=== PATIENT | female | born 1970 | race Caucasian/White ===

== ENCOUNTER 2017-10-07 13:50 | Emergency (ER) | payer OTHER | END 2017-10-07 15:34 | disposition home or self-care (01) | LOC: M ED 13:50 | DX: M94.0 Chondrocostal junction syndrome [Tietze] (principal); F17.210 Nicotine dependence, cigarettes, uncomplicated | CPT/HCPCS: 71046 ==

== ENCOUNTER 2020-01-18 15:41 | Inpatient (IN) | payer OTHER, SELFPAY ==
[~2020-01-18] VITALS: Ht 160 cm; Wt 68.5 kg
[~2020-01-18 15:41] MED LIST: ceFAZolin SOD 2 GM in IV 1 EA IV ONE
[2020-01-18] MEDS ORDERED: ACETAMINOPHEN TAB 650MG DOSE (2X325MG) PO ONE (16:15)
[2020-01-18] MEDS ORDERED: NS 1,000 ML IV SCH (17:29)
[2020-01-18] MEDS ORDERED: MORPHINE 4 MG/ML 1ML VIAL/SYRINGE (J2270) IV ONE (17:45)
[2020-01-18] MEDS ORDERED: NORCO, ANEXSIA 5/325MG TABLET (HYDROcodone/ACETAMINOPHEN) PO PRN (18:00)
[2020-01-18] MEDS ORDERED: MORPHINE 2 MG/ML 1ML VIAL (J2270) IV PRN (18:00)
[2020-01-18] MEDS ORDERED: MOM 30ML SUSPENSION UDC PO PRN (18:00)
[2020-01-18] MEDS ORDERED: ACETAMINOPHEN TAB 650MG DOSE (2X325MG) PO PRN (18:00)
[2020-01-18] MEDS ORDERED: BISACODYL 10 MG SUPP PR PRN (18:00)
[2020-01-18] MEDS ORDERED: zolPIDEM TARTRATE 5 MG TAB PO PRN (18:00)
[2020-01-18] MEDS ORDERED: ONDANSETRON 4MG/2ML VIAL IV PRN (18:00)
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
[2020-01-18 18:29] LABS: BASO # 0.1 10^3/uL (0.0-0.2); BASO % 0.3 % (0.0-1.0); EOS # 0.1 10^3/uL (0.0-0.5); EOS % 0.3 % (0.0-3.0); HEMATOCRIT 41.2 % (36.0-47.0); HEMOGLOBIN 13.7 g/dl (12.0-15.5); LYMPH # 1.4 10^3/uL (1.5-5.0); LYMPH % 7.6 % (24.0-44.0); MEAN CORPUSCULAR HGB CONC 33.3 g/dl (32.0-36.5); MEAN CORPUSCULAR VOLUME 93.2 fl (80.0-96.0); MONO # 0.9 10^3/uL (0.0-0.8); MONO % 4.9 % (0.0-5.0); NEUTROPHILS # 15.9 10^3/uL (1.5-8.5); NEUTROPHILS % 86.2 % (36.0-66.0); PLATELET COUNT, AUTOMATED 302 10^3/uL (150-450); RED BLOOD COUNT 4.42 10^6/uL (4.00-5.40); WHITE BLOOD COUNT 18.5 10^3/uL (4.0-10.0)
[2020-01-18 18:39] LABS: INR 1.05; PROTHROMBIN TIME 13.4 SECONDS (11.8-14.0)
[2020-01-18 18:40] LABS: PARTIAL THROMBOPLASTIN TIME 26.8 SECONDS (25.0-38.4)
[2020-01-18 18:53] LABS: BLOOD UREA NITROGEN 7 MG/DL (7-18); CALCIUM LEVEL 8.4 MG/DL (8.5-10.1); CARBON DIOXIDE LEVEL 25 MEQ/L (21-32); CHLORIDE LEVEL 105 MEQ/L (98-107); CREATININE FOR GFR 0.63 MG/DL (0.55-1.30); GLOMERULAR FILTRATION RATE > 60.0 (>58); GLUCOSE, FASTING 101 MG/DL (70-100); POTASSIUM SERUM 3.8 MEQ/L (3.5-5.1); SODIUM LEVEL 137 MEQ/L (136-145)
[2020-01-18 20:12] VITALS: BP 128/64
[2020-01-18] MEDS ORDERED: HEPARIN SOD (PORCINE) 5000UNITS/ML VIAL (J1644 PER 1000UNITS) SC SCH (21:00)
[2020-01-19 05:17] VITALS: BP 117/62
[2020-01-19] MEDS ORDERED: ceFAZolin SOD 2 GM in IV 1 EA IV ONE (06:00)
[2020-01-19] MEDS: NORCO, ANEXSIA 5/325MG TABLET (HYDROcodone/ACETAMINOPHEN) PO PRN ×2 (06:54→15:07)
--- NOTE | 2020-01-19 07:56 | REP ---
Clinical: Trauma. Technique: AP, lateral, bilateral oblique views of the left knee. Findings: There is a shattered, comminuted depressed fracture involving the proximal tibia from the articular surface to the metaphysis. Overlying soft tissue swelling. Impression: Comminuted depressed fracture of the proximal tibia. Electronically Signed by Gavin Cherry MD 01/19/2020 07:47 A
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
[2020-01-19] MEDS: HEPARIN SOD (PORCINE) 5000UNITS/ML VIAL (J1644 PER 1000UNITS) SQ SCH ×2 (08:28→20:38)
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
[2020-01-19 14:21] VITALS: BP 115/63
[2020-01-19 19:34] VITALS: BP 112/54
[2020-01-20] MEDS: NS 1,000 ML IV SCH ×2 (00:37→07:11)
[2020-01-20] MEDS: NORCO, ANEXSIA 5/325MG TABLET (HYDROcodone/ACETAMINOPHEN) PO PRN ×2 (01:31→07:39)
[2020-01-20 05:49] VITALS: BP 108/54
[2020-01-20] MEDS ORDERED: PERC5TAB12 PO (07:16)
[2020-01-20] MEDS: HEPARIN SOD (PORCINE) 5000UNITS/ML VIAL (J1644 PER 1000UNITS) SQ SCH (07:51)
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
== END 2020-01-20 08:00 | disposition short-term general hospital (02) | DRG 342 ==
LOC: M ED 15:41 → EDBD 15:41 → M ED INP 17:51 → ENRESERV 18:01 → M MS5PR 20:12
PROVIDERS: ADMIT Orthopaedic Surgery Sports Medicine; ATTEND Orthopaedic Surgery Sports Medicine
DX: S82.142A Displaced bicondylar fracture of left tibia, initial encounter for closed fracture (principal); F17.210 Nicotine dependence, cigarettes, uncomplicated; W05.2XXA Fall from non-moving motorized mobility scooter, initial encounter; Y92.89 Other specified places as the place of occurrence of the external cause; Y99.8 Other external cause status

== ENCOUNTER 2020-03-02 13:00 | Outpatient (RCR) | payer MEDICAID, OTHER ==
[~2020-03-02 13:00] MED LIST changes: +PERC5TAB12 PO; -ceFAZolin SOD 2 GM in IV 1 EA IV ONE
== END 2020-03-03 ==
LOC: M PT 13:00
PROVIDERS: ATTEND Orthopaedic Surgery Orthopaedic Trauma
DX: Z51.89 Encounter for other specified aftercare (principal); Z47.89 Encounter for other orthopedic aftercare

== ENCOUNTER → 2020-04-03 | Outpatient (RCR) | payer MEDICAID, OTHER | LOC: M PT 03-04 12:51 | PROVIDERS: ATTEND Orthopaedic Surgery Orthopaedic Trauma | DX: S82.142A Displaced bicondylar fracture of left tibia, initial encounter for closed fracture (principal); X58.XXXA Exposure to other specified factors, initial encounter; Y92.9 Unspecified place or not applicable ==

== ENCOUNTER 2020-05-01 14:20 | Outpatient (RCR) | payer OTHER | END 2020-05-04 | LOC: M PT 14:20 | PROVIDERS: ATTEND Orthopaedic Surgery Orthopaedic Trauma | DX: S82.142D Displaced bicondylar fracture of left tibia, subsequent encounter for closed fracture with routine healing (principal); X58.XXXD Exposure to other specified factors, subsequent encounter; Y92.9 Unspecified place or not applicable ==

== ENCOUNTER 2020-05-06 12:52 | Outpatient (RCR) | payer OTHER | END 2020-06-03 | LOC: M PT 12:52 | PROVIDERS: ATTEND Orthopaedic Surgery Orthopaedic Trauma | DX: S82.142D Displaced bicondylar fracture of left tibia, subsequent encounter for closed fracture with routine healing (principal); W18.30XD Fall on same level, unspecified, subsequent encounter; Y92.9 Unspecified place or not applicable ==

== ENCOUNTER 2020-06-29 13:28 | Outpatient (RCR) | payer OTHER | END 2020-07-04 | LOC: M PT 13:28 | PROVIDERS: ATTEND Orthopaedic Surgery Orthopaedic Trauma | DX: S82.142D Displaced bicondylar fracture of left tibia, subsequent encounter for closed fracture with routine healing (principal) ==

== ENCOUNTER 2020-09-01 10:55 | Outpatient (RCR) | payer OTHER | END 2020-09-03 | LOC: M PT 10:55 | PROVIDERS: ATTEND Orthopaedic Surgery Orthopaedic Trauma | DX: S82.142D Displaced bicondylar fracture of left tibia, subsequent encounter for closed fracture with routine healing (principal) ==

== ENCOUNTER 2020-09-14 13:58 | Outpatient (RCR) | payer OTHER | END 2020-10-04 | LOC: M PT 13:58 | PROVIDERS: ATTEND Orthopaedic Surgery Orthopaedic Trauma | DX: S82.142D Displaced bicondylar fracture of left tibia, subsequent encounter for closed fracture with routine healing (principal); X58.XXXD Exposure to other specified factors, subsequent encounter ==

== ENCOUNTER 2021-07-17 18:56 | Emergency (ER) | payer OTHER ==
[~2021-07-17] VITALS: Ht 160 cm; Wt 67.0 kg
[2021-07-17 18:56] VITALS: BP 108/58
--- OUTSIDE RECORDS SUMMARY | 2021-07-17 19:03 | CCD ---
Author Author [facility] Organization [facility] Address Unknown Phone Unavailable Care Team Providers Care Bulk Folder Name Role Phone Jairo Banerjee MD Unavailable Unavailable Jairo Banerjee MD Unavailable Unavailable Jairo Banerjee MD Unavailable Unavailable Jairo Banerjee MD Unavailable Unavailable Jairo Banerjee MD Unavailable Unavailable Jairo Banerjee MD Unavailable Unavailable Jairo Banerjee MD Unavailable Unavailable Jairo Banerjee MD Unavailable Unavailable Jairo Banerjee MD Unavailable Unavailable Jairo Banerjee MD Unavailable Unavailable Jairo Banerjee MD Unavailable Unavailable Jairo Banerjee MD Unavailable Unavailable Jairo Banerjee MD Unavailable Unavailable Jairo Banerjee MD Unavailable Unavailable Jairo Banerjee MD Unavailable Unavailable Jairo Banerjee MD Unavailable Unavailable Jairo Banerjee MD Unavailable Unavailable Jairo Banerjee MD Unavailable Unavailable Jairo Banerjee MD Unavailable Unavailable Jaior Banerjee MD Unavailable Unavailable Jairo Banerjee MD Unavailable Unavailable Jairo Banerjee MD Unavailable Unavailable Jairo Banerjee MD Unavailable Unavailable Jairo Banerjee MD Unavailable Unavailable Jairo Banerjee MD Unavailable Unavailable Jairo Banerjee MD Unavailable Unavailable Jairo Banerjee MD Unavailable Unavailable Jairo Banerjee MD Unavailable Unavailable Jairo Banerjee MD Unavailable Unavailable Jairo Banerjee MD Unavailable Unavailable Jairo Banerjee MD Unavailable Unavailable Jairo Banerjee MD Unavailable Unavailable Jairo Banerjee MD Unavailable Unavailable Jairo Banerjee MD Unavailable Unavailable Jairo Banerjee MD Unavailable Unavailable Jairo Banerjee MD Unavailable Unavailable Jairo Banerjee MD Unavailable Unavailable Jairo Banerjee MD Unavailable Unavailable Jairo Banerjee MD Unavailable Unavailable Jairo Banerjee MD Unavailable Unavailable Jairo Banerjee MD Unavailable Unavailable Jairo Banerjee MD Unavailable Unavailable Jairo Banerjee MD Unavailable Unavailable Jairo Banerjee MD Unavailable Unavailable Jairo Banerjee MD Unavailable Unavailable Jairo Banerjee MD Unavailable Unavailable Jairo Banerjee MD Unavailable Unavailable Jairo Banerjee MD Unavailable Unavailable Jairo Banerjee MD Unavailable Unavailable BanerjeeJairo MD Unavailable Unavailable Jairo Banerjee MD Unavailable Unavailable BanerjeeJairo MD Unavailable Unavailable Banerjee, Jairo Lemus MD Unavailable Unavailable Banerjee, Jairo Lemus MD Unavailable Unavailable Jairo Banerjee MD Unavailable Unavailable Jairo Banerjee MD Unavailable Unavailable Jairo Banerjee MD Unavailable Unavailable Jairo Banerjee MD Unavailable Unavailable Jairo Banerjee MD Unavailable Unavailable Banerjee, Jairo Lemus MD Unavailable Unavailable Banerjee, Jairo Lemus MD Unavailable Unavailable Banerjee, Jairo Lemus MD Unavailable Unavailable Banerjee, Jairo Lemus MD Unavailable Unavailable Banerjee, Jairo Lemus MD Unavailable Unavailable BanerjeeJairo MD Unavailable Unavailable Jairo Banerjee MD Unavailable Unavailable Jairo Banerjee MD Unavailable Unavailable Banerjee, Jairo Lemus MD Unavailable Unavailable Banerjee, Jairo Lemus MD Unavailable Unavailable Banerjee, Jairo Lemus MD Unavailable Unavailable Banerjee, Jairo Lemus MD Unavailable Unavailable Banerjee, Jairo Lemus MD Unavailable Unavailable Banerjee, Jairo Lemus MD Unavailable Unavailable Jairo Banerjee MD Unavailable Unavailable Jairo Banerjee MD Unavailable Unavailable Jairo Banerjee MD Unavailable Unavailable Jairo Banerjee MD Unavailable Unavailable Jairo Banerjee MD Unavailable Unavailable Banerjee, Jairo Lemus MD Unavailable Unavailable Banerjee, Jairo Lemus MD Unavailable Unavailable BanerjeeJairo MD Unavailable Unavailable BanerjeeJairo MD Unavailable Unavailable Jairo Banerjee MD Unavailable Unavailable Jairo Banerjee MD Unavailable Unavailable Jairo Banerjee MD Unavailable Unavailable Jairo Banerjee MD Unavailable Unavailable Jairo Banerjee MD Unavailable Unavailable Jairo Banerjee MD Unavailable Unavailable Jairo Banerjee MD Unavailable Unavailable Jairo Banerjee MD Unavailable Unavailable Jairo Banerjee MD Unavailable Unavailable Jairo Banerjee MD Unavailable Unavailable Jairo Banerjee MD Unavailable Unavailable Rancho ADAMSON MD Unavailable Unavailable Rancho ADAMSON MD Unavailable Unavailable Rancho ADAMSON MD Unavailable Unavailable Rancho ADAMSON MD Unavailable Unavailable Rancho ADAMSON MD Unavailable Unavailable Rancho ADAMSON MD Unavailable Unavailable Rancho ADAMSON MD Unavailable Unavailable Rancho ADAMSON MD Unavailable Unavailable Rancho ADAMSON MD Unavailable Unavailable Rancho ADAMSON MD Unavailable Unavailable Rancho ADAMSON MD Unavailable Unavailable Rancho ADAMSON MD Unavailable Unavailable Rancho ADAMSON MD Unavailable Unavailable Rancho ADAMSON MD Unavailable Unavailable ADAMSONRancho XAVIER MD Unavailable Unavailable Rancho ADAMSON MD Unavailable Unavailable Rancho ADAMSON MD Unavailable Unavailable ADAMSON, P DEBORAH MD Unavailable Unavailable ADAMSON, P DEBORAH MD Unavailable Unavailable ADAMSON, P DEBORAH MD Unavailable Unavailable ADAMSON, P DEBORAH MD Unavailable Unavailable ADAMSON, P DEBORAH MD Unavailable Unavailable ADAMSON, P DEBORAH MD Unavailable Unavailable ADAMSON, P DEBORAH MD Unavailable Unavailable ADAMSON, P DEBORAH MD Unavailable Unavailable ADAMSON, P DEBORAH MD Unavailable Unavailable ADAMSON, P DEBORAH MD Unavailable Unavailable ADAMSON, P DEBORAH MD Unavailable Unavailable ADAMSON, P DEBORAH MD Unavailable Unavailable ADAMSON, P DEBORAH MD Unavailable Unavailable ADAMSON, P DEBORAH MD Unavailable Unavailable ADAMSON, P DEBORAH MD Unavailable Unavailable ADAMSON, P DEBORAH MD Unavailable Unavailable ADAMSON, P DEBORAH MD Unavailable Unavailable ADAMSON, P DEBORAH MD Unavailable Unavailable ADAMSON, P DEBORAH MD Unavailable Unavailable ADAMSON, P DEBORAH MD Unavailable Unavailable ADAMSON, P DEBORAH MD Unavailable Unavailable ADAMSON, P DEBORAH MD Unavailable Unavailable ADAMSON, P DEBORAH MD Unavailable Unavailable ADAMSON, P DEBORAH MD Unavailable Unavailable ADAMSON, P DEBORAH MD Unavailable Unavailable ADAMSON, P DEBORAH MD Unavailable Unavailable ADAMSON, P DEBORAH MD Unavailable Unavailable ADAMSON, P DEBORAH MD Unavailable Unavailable Re-disclosure Warning The records that you are about to access may contain information from federally-assisted alcohol or drug abuse programs. If such information is present, then the following federally mandated warning applies: This information has been disclosed to you from records protected by federal confidentiality rules (42 CFR part 2). The federal rules prohibit you from making any further disclosure of this information unless further disclosure is expressly permitted by the written consent of the person to whom it pertains or as otherwise permitted by 42 CFR part 2. A general authorization for the release of medical or other information is NOT sufficient for this purpose. The Federal rules restrict any use of the information to criminally investigate or prosecute any alcohol or drug abuse patient.The records that you are about to access may contain highly sensitive health information, the redisclosure of which is protected by Article 27-F of the [facility] Public Health law. If you continue you may have access to information: Regarding HIV / AIDS; Provided by facilities licensed or operated by the [facility] Office of Mental Health; or Provided by the [facility] Office for People With Developmental Disabilities. If such information is present, then the following [facility] mandated warning applies: This information has been disclosed to you from confidential records which are protected by state law. State law prohibits you from making any further disclosure of this information without the specific written consent of the person to whom it pertains, or as otherwise permitted by law. Any unauthorized further disclosure in violation of state law may result in a fine or intermediate sentence or both. A general authorization for the release of medical or other information is NOT sufficient authorization for further disc losure. Allergies and Adverse Reactions Type Description Substance Reaction Status Data Source(s ) Allergy to substance Allergy to substance Allergy to substance [place] ([facility]) Encounters Encounter Providers Location Date Indications Data Source(s ) Outpatient Attender: DEBORAH ADAMSON MD 02/23/2021 12:00: 00 AM [facility] Allan Banerjee MD: [address] [place] [phone], Ph. Attender: Allan Banerjee MD [facility] Medical 2020 12:00:00 AM EST [place] ([facility]) Outpatient Attender: DEBORAH ADAMSON MD [id number] 08/25/2020 12:00:00 AM [facility] Outpatient Referrer: DEBORAH ADAMSON MD 08/25/2020 12:00:00 AM EST Displaced bicondylar fracture of left tibia, initial encounter for closed fracture [facility] Displaced bicondylar fracture of left ti desire, initial encounter for closed fracture Outpatient Attender: DEBORAH ADAMSON MD 08/18/2020 12:00: 00 AM [facility] Outpatient Attender: DEBORAH ADAMSON MD 07/28/2020 12:00: 00 AM [facility] Outpatient Attender: DEBORAH ADAMSON MD [id number] 12:00:00 AM EDT - 05/19/2020 12:03:12 PM EDT Displaced bicondylar fracture of left ti desire, initial encounter for closed fracture [facility] Displaced bicondylar fracture of left ti desire, initial encounter for closed fracture Immunizations Vaccine Date Status Description Data Source(s) COVID-19 VACCINE Moderna 02/22/2021 12:00:00 AM EDT completed [facility] Vaccine Series Complete: YESThis Data wa s Submitted to [facility] Via [employer]. COVID-19 VACCINE Moderna 01/25/2021 12:00:00 AM EDT [facility] Complete: NOThis Data was Submitted to [facility] [employer]. Medications Medication Brand Name Start Date Product Form Dose Route Admi nistrative Instructions Pharmacy Instructions Status Indications Reaction Description Data Source(s) Oxycodone Hydrochloride 5 MG Oral Tablet oxyCODONE HCl 5 MG Oral Tablet (ROXICODONE) oxyCODONE HCl 5 MG Oral Tablet (ROXICODONE) 02/18/2020 12:00:00 AM EDT aborted 1-2 po q 4-6hrs prn pain mdd 6 [facility] diphenhydrAMINE-APAP, sleep, (TYLENOL PM EXTRA STRENGTH PO) Oral aborted Take by mouth [facility] Insurance Providers Payer name Policy type / Coverage type Policy ID Covered alliance party ID Covered alliance party's relationship to tang Policy Tang Plan Information MEDICAID M [id number] Self [id number] [facility] U [id number] Self [id number] [facility] I [id number] Self [id number] SELF PAY ONLY [id number] SP [id number] [facility](M[place]ID) O [id number] S [id number] [facility] [id number] SP [id number] [facility] [id number] SP [id number] [facility]([place]) O [id number] S [id number] [facility] [id number] SP [id number] MEDICAID [id number] SP [id number] Problems, Conditions, and Diagnoses No Information Surgeries/Procedures No Information Results ID Date Data Source [id number] 2020 08:09:00 AM [place] ([facility]) Name Value Range Interpretation Code Description Data Alysa rce(s) Supporting Document(s) sars-cov-2 positive negative Abnormal (applies to non-num giovanny results) Sars-cov-2 [place] ([facility]) ID Date Data Source [id number] 2020 08:03:00 AM EST [facility] Name Value Range Interpretation Code Description Data Alysa rce(s) Supporting Document(s) SARS coronavirus 2 RdRp gene [Presence] in Respiratory specimen by JULIOCESAR with probe detection Detected [facility] This lab was ordered by [facility] and reported by [facility]. ID Date Data Source [id number] 08/25/2020 12:59:16 PM EST [facility] Name Value Range Interpretation Code Description Data Alysa rce(s) Supporting Document(s) Progress Note [facility] YDBJYy2iAlRRVuDz86/VSWbeJITyv6YrEYyiKNh0UVrwZTNiA3LzROM3yR3vFCP3TRyLJbBuZgAcLdYa [facility] HeLfcSSvHcNWDaLskQSeOfQPubXryaqYGjJB2QhQV3PVRjK75rZWUkGCUoO9YdUJTvAsR+Vp8RNXFlzT OeYC9QZuxS3M35yjhJLo+/QL/HWEKjKHMzp678WuJWOdjQ5KxbYW4H0A4VUXdaCYBtG6J8tnqQy7+David [file] [employer]+Bu7QARHvVXz5Z0V7JSJlJEa1P6QRL5NBZLRnRIabXTsfDKVzACw5T9A9KPNoY8LIS0Thhelvdt0+ KF0EE78RFRZqOYk7H3U5cGLlT1U6nRyZwBG0FN5EFH9IoIb9fJGdrA9+HI1WH8OEGbFrNQo5R7Z4vYZz K1I9iUeHyKI2TW7AVP4UxQSdREMxzkWbJa4nA6JXOY tJWeGLLLN7OH6TbNWsFR3FaITBO9YosFYaOi1aNYqlhUVytW8vUy2jOPvfCC3YEyTAQQgEELS0EU2SiX RvLD7SzGNCJ4NicNRzVl8tKBdakZZjao7+EA0VZLWeJr3QLs1+WTupxiPpTycNCeUyWYEad8DrGPp0RP 8YFU5ffQxyROM6Ji3AvZE7qNVaN0dAVG4NaWJcV09o jCBjTQBwGt5GKsR8mwYflY5XBO79zPEyo2T6LIHwA0zwZUqwf28rQQitELtNSJ3gSMNWGCzmCGrtLOV3 EwVroxviVKLeQu1RUhNlIHl5tP9bqOY3MCL6EusmfLCuQSiaDzLbHpOaOiH4qUzxzpv1FFtnTU9bZAhu czptZXRhLyc+WXnwLGVnESKmZtsYLJUnnV6gxlT6bi UdKPujyOIvGu2sn6t7UhoqIl6nSf9rRKq4XiLnArPnMNWpQs9voD13NHwaucUnFu1MGoQmFFX8K6DiRy pSREY+ECjlRNznbRk1xQEbBZIyXh2AFTNwWXOcABIzRZNxUDGmTSBqODKkJWTzXAKiSHZlPRYhAXXqBV AgICAgICAgICAgICAgICAgICAgICAgICAgICAgICAg EUDhNYBdMOWrHTTaSVBjBIExWLTxGYGuMMDpGIJfXR8BJUDcXQVkCBRkCMQvMGDwZPEkCDYfWDOcGSDr ICAgICAgICAgICAgICAgICAgICAgICAgICAgICAgICAgICAgICAgICAgICAgICAgICAgICAgICAgICAg UADgKCJpTWGiIMMlFM1JKUVxFNDcAFWhIIHzOLAbGR AgICAgICAgICAgICAgICAgICAgICAgICAgICAgICAgICAgICAgICAgICAgICAgICAgICAgICAgICAgIC YvDULlXUDmHETtSYKkMJLlUHEqMPAqSC9OGTGzJHArLWBxTEDcQQZbXZGcLKBzIVWdNGYgYTThZASzNM AgICAgICAgICAgICAgICAgICAgICAgICAgICAgICAg PLZrIFCfXXOdERHwCZLhTGBbSBSzNSQlBPKuXPVtKURvXV0DSYDuLTSnZEVlTZAqGDPnKWWgFBZaQQOt ICAgICAgICAgICAgICAgICAgICAgICAgICAgICAgICAgICAgICAgICAgICAgICAgICAgICAgICAgICAg MKVtDFAwMSMzOMBjZANdDB5BUGCeZRUaPVWcTAMkDF AgICAgICAgICAgICAgICAgICAgICAgICAgICAgICAgICAgICAgICAgICAgICAgICAgICAgICAgICAgIC ReORFuKABpEUHkEEIwAPAxBFYvBXWpTSRaXU8IYSBoQJPbCSIgJXPyYPUhHUIsGQWjZQInUJYuICXnGQ AgICAgICAgICAgICAgICAgICAgICAgICAgICAgICAg LCOhPCKoXCJdABFpAMLxEICcCHSbJFAbVJLaJRDgXQXhZFOwBQ6ERBJbBYRyXPZaYZUgMNOhWLEqBCGs ICAgICAgICAgICAgICAgICAgICAgICAgICAgICAgICAgICAgICAgICAgICAgICAgICAgICAgICAgICAg CCFxAORqGMBxMCCvDWQqKZIkZL4JKOLjTHQmNYPeCT AgICAgICAgICAgICAgICAgICAgICAgICAgICAgICAgICAgICAgICAgICAgICAgICAgICAgICAgICAgIC WcZZAiICGbOPZbEYGjPQBvITUoIBIvAFVySBPgLE1RESWuHRIcEFZyCRJeEIOrJBDiPHJhNAFpKUGlXB AgICAgICAgICAgICAgICAgICAgICAgICAgICAgICAg DNQyKIKeDYAjEPBrQVMmNEOxVKIyAYTaBIErAFIqYTMuTQFgEVSlDA6LLX44pCTlz8F3ENYuFU9bntb/ Ny6UZCqsixNdiBZdXI0ENrGwJD7bjc0XObXmHP1tqj1AEBxBOmBtV7V5yLKcIZGbEEIEImJsK76lXVcd Li59YSxfECBhLvKxGQe5Jp0AChReS7wzUEAaVlL8UR OfLvC2HPFzMvCoOOxxQJ4Cj8ZxpCVfILp+Sk4RAJ4mn2FkMHchWOUbYG1aqh0JUNxYCpPuX4DjjxB7GU WpKZTzEk9FQPTgBZUagJGmUjGhVCNZXgUwD7WnqA53DEFONk4+BJtvykZiXwkOJtMuMBJdk5SmUVx9MQ 3YUNRaXBa8nAHcDECtM4Brd7NyIt47QSAqQaocCeMv FBEmXONGdGBdrTQbZ9rxLW1ZKCM7UXPuRtJgEnFzSfKjJCJ0HJMbXN3rSYuvDV6QLWE6SDhhCAIoMUBs V7lFSzDmRNZcMvRwhOdkVK6GHaTjD4KicxKyvXKcSVWzNFVQIc8+YLiioqBfRilTXwHmNUZkl3ArVCc1 ZX2DNGVvECniXV8CKNAzcC5jZTliDY0MMbPlJSOeDE UZQiLuZ77oqZXeYCv8F8ClTiJaPJUxNgyiNWUwNMafUpZeLDEgNvWmREalWV9+ID4+QNmwGG4UFTloix EjVJDuWs1GGFNgTCSlYH0zHEWsNXOoX9N7fKniCZBZGoDzT3eylzwbVE0fDXMnA224pMcwqzWsWOSiZV RlFg9HOJEaLXU3MXPdqXGgFjYpCLEXIGjvNO7DvTZs NNI3iY9iMTcwOZYlPDNtJ0fLNeWgmJhuND06dSazawVtiABdYPh+Bf0DRO4kv0VlKCt3jgIbHFzjOGP1 OXrsPNKoGWNgODTyUAG2SKD4CWODAkPqPKZqZAVaTJpvKANfRCUtvq3JTCYcBBVkUMS3UiJcLKIyOWHh FOwzBZApVOBsXIEpHGAgJTAeNG1AZzDdEESgAGPmQW tsBTPsLVJayw9WSWLzARImVBLcGqYxRNPiRJCpXEviUDMgKCT7UUH7OKXjWLNnHZ9VZwBiJDKwCUYvKA GhANCpTVYfbb4CRNOqFWOcHgAwMXGeYOGpBNGpDFxmHUHjPIW7Dqn0GLYiIOPjHI9JGvMwJMFzFHn7Em LvBXDxLCUuhj8MXKZzWUMgLzj6VzHsKAYdVTGlDSno ORNiWBB5HxJ6EGVuBZQjQG3PQwScLMZfXPd3IAchLPXwLGPcrp5FAFSbGTKtNDJyHJJiHNAhTFOmLYez WTCvPCYjHWHxMBTwCILnOM3YGhDfVQKnUmT2UzIyLIThPDOphp8IKKSvDAViZKx3GRNuZLXeQYFaDBtz HZVbOEHeJdL6LMRzLTCzRG6XUgPdPNPyIuRvAqEjKZ VuJSHojk9GXOGkSTSgOFh4NaRgXPRpOKTfMQzxPOHmTMGaXjD5ANKrAVHpYM7JOdNmVASnKjBpHEiqZF HqTBSada6SSJTzWXYoEmA9KYMkWYDvVNThNIv8hpJerPBaSHh1NS8PB5VfwgEpFoVFAu2Xj488KAWeVK JhWj1DS3hkTf5yYYOnWHZKJy6KPXy4UtO2FmZlNdDb JCG8B3F6TucrYHvoEQo4SmT2VsG8GJZ+WRnoIMMtCvT0UlR1VdApBXgqKgW9QFSxVKilSOSjKNY6MK4v XSANCj4+CExqxOEtfTiuFYJEKhRgMrk3CFrlZDOWVb7Z ID Date Data Source [id number] 08/25/2020 12:47:23 PM [facility] XR KNEE 1-2 VIEWS [id number] RESULTInter preted by:JORDAN Larose KNEECLINICAL STATEMENT: Status post ORIF. Follow-up.TECHNIQUE: 3 views of the left knee. COMPARISON: 04/21/2020FINDINGS: Since the prior study, there has been no significant interval change.The patient is again noted to be status post internal fixation of tibial plateau fracture. Fixation plate with interlocking screws appear intact and aligned. Gross anatomic alignment is maintained. No acute fracture or dislocation is identified. The joint spaces are preserved.The visualized soft tissues are within normal limits.IMPRESSION: Since 04/21/2020,Status post ORIF, with stable postoperative changes.This document has been electronically signed by Preston Bean MD on 08/25/2020 12:45 PM Name Value Range Interpretation Code Description Data Alysa rce(s) Supporting Document(s) Procedure Social History Code Duration Value Status Description Data Source(s ) Alcohol intake 08/25/2020 12:00:00 AM EST Ex-drinker (finding) comp leted Ex- drinker (finding) [facility] Tobacco use and exposure 08/25/2020 12:00:00 AM EST Current user co mpleted Current user [facility] Smoking 08/25/2020 12:00:00 AM EST Former smoker completed Former smoker [facility] Vital Signs ID Date Data Source [id number] 08/25/2020 12:52:00 PM [facility] Name Value Range Interpretation Code Description Data Source(s) PREFERRED NAME [facility] ID Date Data Source [id number] 08/25/2020 12:59:16 PM [facility] Name Value Range Interpretation Code Description Data Source(s) PREFERRED NAME [facility] PREFERRED [facility] ID Date Data Source [id number] 08/25/2020 12:47:23 PM [facility] Name Value Range Interpretation Code Description Data Source(s) PREFERRED NAME [facility] ID Date Data Source [id number] 08/17/2020 04:13:43 PM [facility] Name Value Range Interpretation Code Description Data Source(s) PREFERRED [facility] Patient Treatment Plan of Care Planned Activity Planned Date Details Description Data Source (s) Oxycodone Hydrochloride 5 MG Oral Tablet 02/18/2020 12:00:00 AM EDT [facility] diphenhydrAMINE-APAP, sleep, (TYLENOL PM EXTRA STRENGTH PO) [facility]
[2021-07-17 20:31] LABS: RSV AMPLIFICATION NEGATIVE (NEGATIVE)
--- OUTSIDE RECORDS SUMMARY | 2021-07-17 20:58 | CCD ---
Author Author [facility] Organization [facility] Address Unknown Phone Unavailable Care Team Providers Care Maintenance Mechanic Millwright Name Role Phone Jairo Banerjee MD Unavailable [...] is protected by Article 27-F of the [facility] Public Health law. If you continue you may have access to information: Regarding HIV / AIDS; Provided by facilities licensed or operated by the [facility] Office of Mental Health; or Provided by the [facility] Office for People With Developmental Disabilities. If such information is present, then the following [facility] mandated warning applies: This information has [...] law may result in a fine or mcfp sentence or both. A general authorization for the release of medical or other information is NOT sufficient authorization for further disc losure. Allergies and Adverse Reactions Type Description Substance Reaction Status Data Source(s ) Allergy to substance Allergy to substance Allergy to substance FRANKLIN FURNACE ([facility]) Encounters Encounter Providers Location Date Indications Data Source(s ) Outpatient Attender: DEBORAH ADAMSON MD 02/23/2021 12:00: 00 AM [facility] Allan Banerjee MD: [address] [place] [phone], Ph. Attender: Allan Banerjee MD [facility] Medical 2020 12:00:00 AM EST UZIEL ([facility]) Outpatient Attender: DEBORAH ADAMSON MD [id number] 08/25/2020 12:00:00 AM [facility] Outpatient Referrer: DEBORAH ADAMSON MD 08/25/2020 12:00:00 AM EST Displaced bicondylar fracture of left tibia, initial encounter for closed fracture [facility] Displaced bicondylar fracture of left ti desire, initial encounter for closed fracture Outpatient Attender: DEBORAH ADAMSON MD 08/18/2020 12:00: 00 AM [facility] Outpatient Attender: DEBORAH ADAMSON MD 07/28/2020 12:00: 00 AM [facility] Outpatient Attender: DEBORAH ADAMSON MD [id number] 12:00:00 AM EDT - 05/19/2020 12:03:12 PM EDT Displaced bicondylar fracture of left ti desire, initial encounter for closed fracture [facility] Displaced bicondylar fracture of left ti desire, initial encounter for closed fracture Immunizations Vaccine Date Status Description Data Source(s) COVID-19 VACCINE Moderna 02/22/2021 12:00:00 AM EDT completed [facility] Vaccine Series Complete: YESThis Data wa s Submitted to [facility] [employer] COVID-19 VACCINE Moderna 01/25/2021 12:00:00 AM [facility]T [facility]: NOThis Data was Submitted to [facility] Medications Medication Brand Name Start Date Product Form Dose Route Admi nistrative Instructions Pharmacy Instructions Status Indications Reaction Description Data Source(s) Oxycodone Hydrochloride 5 MG Oral Tablet oxyCODONE HCl 5 MG Oral Tablet (ROXICODONE) oxyCODONE HCl 5 MG Oral Tablet (ROXICODONE) 02/18/2020 12:00:00 AM EDT aborted 1-2 po q 4-6hrs prn pain mdd 6 [facility] diphenhydrAMINE-APAP, sleep, (TYLENOL PM EXTRA STRENGTH PO) Oral aborted Take by mouth [facility] Insurance Providers Payer name Policy type / Coverage type Policy ID Covered republican ID Covered republican's relationship to tang Policy Tang Plan Information MEDICAID M [id number] Self [id number] [facility] U [id number] Self [id number] [facility] I [id number] Self [id number] SELF PAY ONLY [id number] SP [id number] [facility]) O [id number] S [id number] [facility] [id number] SP [id number] [facility] [id number] SP [id number] [facility]) O [id number] S [id number] EMED[place] [id number] SP [id number] MEDICAID [id number] SP [id number] Problems, Conditions, and Diagnoses No Information Surgeries/Procedures No Information Results ID Date Data Source [id number] 2020 08:09:00 AM CASSANDRA TRIPLETT ([facility]) Name Value Range Interpretation Code Description Data Alysa rce(s) Supporting Document(s) sars-cov-2 positive negative Abnormal (applies to non-num giovanny results) Sars-cov-2 UZIEL ([facility]) ID Date Data Source [id number] 2020 08:03:00 AM EST NYYOAV Name Value Range Interpretation Code Description Data Alysa rce(s) Supporting Document(s) SARS coronavirus 2 RdRp gene [Presence] in Respiratory specimen by JULIOCESAR with probe detection Detected [facility] This lab was ordered by [facility] and reported by [facility]. ID Date Data Source [id number] 08/25/2020 12:59:[address] [facility] Name Value Range Interpretation Code Description Data Alysa rce(s) Supporting Document(s) Progress Note [facility] WZSBQj4qQuAEQoVz90/VFQqfYBXti2FxSYmeGRj8OSpvTGGrG7ZaWZY3fE4bNMU3ZEmSEpZhDeJbDdKo [facility] PdJaxHRqLoKVPmAsxZBdMwHFsbAegdbWXjQK2ZfJZ7NOBgU05wLQZbYGHpV8LhKLBtMsM+Gz2OTHQfvP EzWV3CVhnH5J02qjtZIr+/QL/HPHTpHSOio428OiNVUgfO2CkvIY0K4U6QZTreHUIgB5O3ojpOu6+David [file] tpDoT+calender [file] CENTER ADMINISTRATOR+Gf4TSDKrTTf8V9F1HBHcLSl5M6HYN5MZWADsYVauGAvnICRfBRu8M4M0WEUrB7BEJ6Slqrolzg7+ YP4TA63RDFQwAHj3Z5G6aUIvV4O7aBcZeKQ6GC6TRF3KoAt7jYGxgL6+WG8EU2DSHtFbBDp8D8W9kXEf M3R0eKuMbGO5HG4NFJ8CyQWzBYGofjJwSl5xC0HURD pEOsUNABW4XJ5ImMKkIT0YfNNWH8GalTUqWr4xQZpudGPdsM1hXy2uTNoeCD4NBuKZOWaEHZD3FS4XoC QmBO3NeOGVT0LbxULbHm2zXAvxcFHipt8+TZ1DGTYaNl5MNl8+AIiueeOfEkiLIyNeVYMqi8BpYQt7CM 4XXO8cbIlwHRE4Pt6RmXF8lERqS3nFRE3GdPFlT84t vBLkFEMjGd3ZWjW0hoAvdL6EPY91nWYlx6E1LQPvY7byMIbee47iNQxnBRcKPO0jKIFHZIvlTDsaQFO8 MgAbjhxkEDJzDo5SKzDiABm6aB9tiWT0ZNO7AozjjHWmRAahYdHcLtYqBeT3jZarvmf7QByhBV8rKQsk czptZXRhLyc+TKqwBCPxEISoOibOMBJthK0deaU9br BcWGzcoUCcNc3gt6n6CscbJx4aAf4xMLd6PtPkXeCzFDFqIc6nwI14WCmrttIwAw9TDiDqSLM1Q6ViRp pSREY+GLojTFjjuHc3bCLgYPHgIj9ARRFoEUFcBYOsUDSdXLMhFEVbCBHjHXJwQXWdGCCwYAKnSOPsTP AgICAgICAgICAgICAgICAgICAgICAgICAgICAgICAg JOCoVLDuOEGhATNsULQkHZDhAHJqWVSzSFCpZDWfYY9ZTMLqJJLeNTHfESMrIDQbUMAnISUhRRZbKCMo ICAgICAgICAgICAgICAgICAgICAgICAgICAgICAgICAgICAgICAgICAgICAgICAgICAgICAgICAgICAg OAWmZSKjVTDkEHLjII2HQKXyRYFqBZEbQNYhZVCpOS AgICAgICAgICAgICAgICAgICAgICAgICAgICAgICAgICAgICAgICAgICAgICAgICAgICAgICAgICAgIC WkRBMtNCRdCELxCFMzMXAyVAQxFTQkOA6LIMDlZAUzCGEmRBPrNYJjXHGaVFJkJIQkXNTlBHAzPYMcBI AgICAgICAgICAgICAgICAgICAgICAgICAgICAgICAg GJVtLWHmNVItQQQwYVTvFUXfCEDzMMSvTZNsMSVuBLEfYE5ODYOpWMWqDRNjEXFpVMWdEZPxKSDeJFTx ICAgICAgICAgICAgICAgICAgICAgICAgICAgICAgICAgICAgICAgICAgICAgICAgICAgICAgICAgICAg BNLvEESyQPCyPCVvGMRvCX8NUJMsHPUaLQPnIVEgAD AgICAgICAgICAgICAgICAgICAgICAgICAgICAgICAgICAgICAgICAgICAgICAgICAgICAgICAgICAgIC GcDZIwLQXpLCAuFXBzHCFjHFPmJDZnQHHyPP5PQGQpUVBoNAPiKMGxJUHkFKEiRGPiJYVuZOOtUCVuUY AgICAgICAgICAgICAgICAgICAgICAgICAgICAgICAg KHEaAVYcCGHyAAEgFZBzCDTfQEQzSPErMKGjFIUcEIFxICHoVL8OGSClTLSnKLHdDCLcJACzOCKxPTGv ICAgICAgICAgICAgICAgICAgICAgICAgICAgICAgICAgICAgICAgICAgICAgICAgICAgICAgICAgICAg ZWHsFHFiHJCoTRIoIBBuMWXnFS0XUBMbVCDgXJNsEK AgICAgICAgICAgICAgICAgICAgICAgICAgICAgICAgICAgICAgICAgICAgICAgICAgICAgICAgICAgIC GnWYTaICJoHGUdREIfSQUgTJYtLBZbKSSjZWTaAF2WLNKgEAJjLMLxRWDsFYKxTNJmHQIzPBFzEOUmJI AgICAgICAgICAgICAgICAgICAgICAgICAgICAgICAg RDTkWYLsVUJpLEUkBPKvUZLeCGAjEEKnSFJhYOYiQWYhJTCqOEAnRX4QWU12nUFwq6L6YRNuBE3qzix/ Hg8RGMdljzTvoCPpDP3JAkOoML5plk2RMxPxRZ6wvc3HXCxIUoCiY7Q6gURaVGPfBFMONbWcD75kBZwb Sb59FRprEWGtTvUyHBv6Hy1AFdExZ4ewWQGlSrQ2EC BrJnA7FZRqUzJbFOfiYV2En3HrsJZvWAa+Hw5DZN7rq5RxRBrvGUWoMS5xnt7LERtIJtTqI0KmkdI0AH AkXROoIv7RXPQmSSTxvNQpVcBaERAZCmJqP7DmzZ02EMEQHd3+UDvrmfArVzfUWyVePILxq0VjABg4UU 5SGIWqWQe0kXSgHJYuB2Mgv6WyGm45FQWnLsuxGcPz TAYyUZSItULalYWoG6blJY6ZQXE3XWBvMcOcWbXaInMiTYN2MNKuKK7qUDvhKF4ZIIW3NQarVJCvGFTm P5sRXgVnEAMeGzZkyZfmPZ8QDwArB9ZelkUlwTXwKLJnPIQMUk0+CMiyoeJxAaxCXsAhHPMyx3YxXNi4 AS5VBZXiRThiIW8BKVMleD6tCAquMC7VKgPaXZYjQR VTThGyM23zvQPyPGv2N7RsQbZrPCDzJmngEBFlVUbpAhLfTCJsPsAxWQaqFJ8+ID4+TFpxZI7MOFseci UsGNNeGy3JSKWyBGOnYC4qFJGeVDUkJ6D1gPzpMLTYTpLtT2pmujxvZQ1wYFLmK092tOnnmxTtAQTyCB OyIa9UPIZrIBC4ZBVhoFYrEsGnBMUQAVhyGF5GkPFf ZZS3kA1hBAgzWOIwXTKmB8tGSwOprUgaOU62mGnjogKjjMJjBDw+Tl4GSU0wy8GdULs1etSkWHycVUN4 NVmzCSXoKQHvRXOuSQN6NQL6GRHYUkIqHKVvVFZtIYoqQTNmKFHrnn0GSUUlUGEfLEE8JgRrIPNwGTUz ZEisXLUoIEEqRJFdCOUuXEGpAC5BVsZzGAWfXKYgXP xfJGNoMRYxvp0EWGWzLKGuSYTkUxCaMKSlILKhCBovKKChJBT9EZA6GWUgFEYhUS7PViBgVPEsUXXkIT DjKRMeEHVhof1JMCLgGNYiVbOsVUKaKQWvVSMgMBzgFATwWXM4Xyi6DEUmRRCwKP8LEuWwODGqENn0Hb ZhYAZzHKMvdx0FQKKwLXLmRgc6RkVjHZVmJFKkFFtb HTNiZYH2IvD8WWFfEJMtGT9RFwPwAXDfVEo3SXjkKXTfLXWhns8ZGDTkTXMnTSFrIXYjGQXkNPPwWLyf DTMcTPVqNWKkAEVqBQVdVF3WOrQxMPRbUnZ2MeSvINPuGBIpvi1AFQItALGeUOa0THCeRWAxOUSwXIrc OMNjNPYjLvR2TEViPWPxSO3NWbFyAZSfQaPbViZwAH RuZGKlcu6NWDUlBFDmVDl1LjWnOMVaFSJbWIlsEKGrIDUeKzX2PAEbAHCaLD3APnIbKVSiZoDyETpmOJ BxRZMfyn9WYHRbSOXkYcP2WOEwHSZzOVInLIs4snKrrVLoRNw6BJ2HQ6XqxkZkVoFNAf2Qz336CCRmAW ByNg8TB7vnRx3cNZQaFOZSYa5PKIc9ViC7ZvQhXtTb BSJ7Y0I2EyfmBPtbPTi8AcN6DfF7KOI+LDweFXNjWaL7ZdT8FvFlEEqwAdF4SKLfOUwkOTIyZTJ3JG8u XSANCj4+AYnveEIeyPxoOVPQIaLpSrh6RWklYEFQMg3B ID Date Data Source [id number] 08/25/2020 12:47:23 PM [facility] XR KNEE 1-2 VIEWS 33039PRJVP RESULTInter preted by:JORDAN Larose KNEECLINICAL STATEMENT: Status [...] Ex-drinker (finding) comp leted Ex- drinker (finding) [facility] Tobacco use and exposure 08/25/2020 12:00:00 AM EST Current user co mpleted Current user [facility] Smoking 08/25/2020 12:00:00 AM EST Former smoker completed Former smoker [facility] Vital Signs ID Date Data Source [id number] 08/25/2020 12:52:00 PM [facility] Name Value Range Interpretation Code Description Data Source(s) PREFERRED NAME [facility] ID Date Data Source [id number] 08/25/2020 12:59:16 PM [facility] Name Value Range Interpretation Code Description Data Source(s) PREFERRED NAME [facility] PREFERRED [facility] ID Date Data Source [id number] 08/25/2020 12:47:23 PM [facility] Name Value Range Interpretation Code Description Data Source(s) PREFERRED NAME [facility] ID Date Data Source [id number] 08/17/2020 04:13:43 PM [facility] Name Value Range Interpretation Code Description Data Source(s) PREFERRED [facility] Patient Treatment Plan of Care Planned Activity Planned Date Details Description Data Source (s) Oxycodone Hydrochloride 5 MG Oral Tablet 02/18/2020 12:00:00 AM EDT [facility] diphenhydrAMINE-APAP, sleep, (TYLENOL PM EXTRA STRENGTH PO) [facility]
== END 2021-07-17 20:57 | disposition home or self-care (01) ==
LOC: M ED 18:56
DX: Z20.822 Contact with and (suspected) exposure to COVID-19 (principal); R09.82 Postnasal drip; D64.9 Anemia, unspecified; E28.2 Polycystic ovarian syndrome; F17.200 Nicotine dependence, unspecified, uncomplicated; Z88.2 Allergy status to sulfonamides

== ENCOUNTER 2022-09-06 20:56 | Emergency (ER) | payer OTHER ==
[~2022-09-06] VITALS: Ht 160 cm; Wt 64.0 kg
[2022-09-06 20:58] VITALS: BP 105/61
== END 2022-09-06 21:27 | disposition left against medical advice (07) ==
LOC: M ED 20:56
DX: Z53.21 Procedure and treatment not carried out due to patient leaving prior to being seen by health care provider (principal)

== ENCOUNTER 2023-10-27 19:33 | Emergency (ER) | payer OTHER ==
[~2023-10-27] VITALS: Ht 160 cm; Wt 63.7 kg
[2023-10-28 00:51] VITALS: BP 110/58; TEMP 98; O2SAT 99
== END 2023-10-28 03:36 | disposition left against medical advice (07) ==
LOC: M ED 19:33
DX: Z53.21 Procedure and treatment not carried out due to patient leaving prior to being seen by health care provider (principal)

== ENCOUNTER 2023-10-28 14:34 | Emergency (ER) | payer OTHER ==
[~2023-10-28] VITALS: Ht 160 cm; Wt 63.0 kg
[2023-10-28 19:00] VITALS: BP 120/57; TEMP 97.3; O2SAT 99
== END 2023-10-28 19:06 | disposition home or self-care (01) ==
LOC: M ED 14:34
DX: M65.4 Radial styloid tenosynovitis [de Quervain] (principal); F17.210 Nicotine dependence, cigarettes, uncomplicated; F10.10 Alcohol abuse, uncomplicated; Z88.2 Allergy status to sulfonamides